=== PATIENT | female | born 1980 | race Caucasian/White ===

== ENCOUNTER 2018-02-24 13:20 | Emergency (ER) | payer SELFPAY ==
--- NOTE | 2018-02-24 13:23 | EDM.PDOC ---
ED HPI GENERAL MEDICAL PROBLEM - General Stated Complaint: BACK PAIN Time Seen by Provider: 02/24/18 13:22 Source of Information: Reports: Patient History Limitations: Reports: No Limitations - History of Present Illness INITIAL COMMENTS - FREE TEXT/NARRATIVE: HISTORY AND PHYSICAL: History of present illness: Review of systems: As per history of present illness and below otherwise all systems reviewed and negative. Past medical history: As per history of present illness and as reviewed below otherwise noncontributory. Surgical history: As per history of present illness and as reviewed below otherwise noncontributory. Social history: No reported history of drug or alcohol abuse. Family history: As per history of present illness and as reviewed below otherwise noncontributory. Physical exam: General: Well-developed and well-nourished 38-year-old female. Alert and oriented. Nontoxic appearing and in no acute distress. HEENT: Atraumatic, normocephalic, pupils equal and reactive bilaterally, negative for conjunctival pallor or scleral icterus, mucous membranes moist, throat clear, neck supple, nontender, trachea midline. No drooling or trismus noted. No meningeal signs Lungs: Clear to auscultation, breath sounds equal bilaterally, chest nontender. Heart: S1S2, regular rate and rhythm without overt murmur Abdomen: Soft, nondistended, nontender. Negative for masses or hepatosplenomegaly. Negative for costovertebral tenderness. Pelvis: Stable nontender. Genitourinary: Deferred. Rectal: Deferred. Skin: Intact, warm, dry. No lesions or rashes noted. Extremities: Atraumatic, negative for cords or calf pain. Neurovascular unremarkable. Neuro: Awake, alert, oriented. Cranial nerves II through XII unremarkable. Cerebellum unremarkable. Motor and sensory unremarkable throughout. Exam nonfocal. Notes: Diagnostics: Therapeutics: Prescription: Impression: Plan: 1. 2. 3. Follow-up with your primary caregiver in the next 1-2 days. Return to the ED as needed and as discussed. Definitive disposition and diagnosis as appropriate pending reevaluation and review of above. - Related Data Allergies Allergy/AdvReac Type Severity Reaction Status Date / Time azithromycin Allergy Difficulty Verified 05/09/16 16:37 Breathing Sulfa (Sulfonamide Allergy Difficulty Verified 05/09/16 16:37 Antibiotics) Breathing Home Meds: Home Meds methIMAzole [Methimazole] 5 mg PO DAILY 01/27/15 [History] Hydrocodone/Acetaminophen [Hydrocodon-Acetaminophen 5-325] 1 tab PO Q4H PRN [History] Propranolol [Inderal] 1 tab PO TID 03/26/15 [History] Baclofen 20 mg PO TID PRN 03/23/16 [History] Indomethacin 50 mg PO TID PRN 03/23/16 [History] Naproxen Sodium [Aleve] 220 mg PO ASDIRECTED PRN 03/23/16 [History] Pregabalin [Lyrica] 75 mg PO BID 03/23/16 [History] buPROPion [Wellbutrin XL] 150 mg PO DAILY 04/08/16 [History] Nitrofurantoin Monohyd/M-Cryst [IJD: Nitrofurantoin [place]-MCR] 100 mg PO BID #10 capsule 04/09/16 [Rx] Rivaroxaban [Xarelto] 15 mg PO BID #40 tablet 04/09/16 [Rx] Past Medical History - Past Health History Medical/Surgical History: Denies Medical/Surgical History HEENT History: Reports: Impaired Vision Cardiovascular History: Reports: Arrhythmia Respiratory History: Reports: None Gastrointestinal History: Reports: None 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: Dysfunctional Uterine Bleeding, Polycystic Ovaries Musculoskeletal History: Reports: Fibromyalgia Neurological History: Reports: Headaches, Chronic, Other (See Below) Other Neuro History: Graves Disease, Lupus, Fibromyalgia Psychiatric History: Reports: Anxiety, Depression Endocrine/Metabolic History: Reports: Hyperthyroidism Hematologic History: Reports: None Immunologic History: Reports: None Oncologic (Cancer) History: Reports: None - Infectious Disease History Infectious Disease History: Reports: Chicken Pox - Past Surgical History Female Surgical History: Reports: Hysterectomy, Other (See Below) Social & Family History - Family History Family Medical History: Noncontributory HEENT: Reports: Impaired Vision Cardiac: Reports: Hypertension OBGYN: Reports: Musculoskeletal: Reports: Arthritis Endocrine/Metabolic: Reports: Diabetes, type II - Caffeine Use Caffeine Use: Reports: Tea
[2018-02-24] MEDS ORDERED: Ketorolac 60 MG/2 ML SDV IM ONE (14:03)
[2018-02-24] MEDS ORDERED: methylPREDNISolone Sodium Succinate 125 MG/2 ML SDV IVPUSH ONE (14:03)
--- NOTE | 2018-02-24 14:05 | EDM.PDOC ---
ED HPI GENERAL MEDICAL PROBLEM - General Chief Complaint: Back Pain or Injury Stated Complaint: BACK PAIN Time Seen by Provider: 02/24/18 13:22 Source of Information: Reports: Patient History Limitations: Reports: No Limitations - History of Present Illness INITIAL COMMENTS - FREE TEXT/NARRATIVE: HISTORY AND PHYSICAL: History of present illness: 38-year-old female presenting with chief complaint of right lower back pain extending into the right lower leg with past medical history fibromyalgia. Patient states that last week she strained her back when working with her horse. States that since then she has had right lower back pain that extends into her right lower leg. She does state that she has had some numbness and tingling associated with this. She denies any overt trauma. She does see nor does he who treats her with pain medication including Castaner 7.5, tramadol, and Lyrica. Patient states that the main reason why she came in to make sure she had no other further injuries. As above patient denies any overt trauma. She denies any bowel or bladder incontinence. No decrease in strength. Exam right straight leg raise positive. No decrease in sensation or muscle strength. Range of motion somewhat limited secondary to pain. Review of systems: As per history of present illness and below otherwise all systems reviewed and negative. Past medical history: As per history of present illness and as reviewed below otherwise noncontributory. Surgical history: As per history of present illness and as reviewed below otherwise noncontributory. Social history: No reported history of drug or alcohol abuse. Family history: As per history of present illness and as reviewed below otherwise noncontributory. Physical exam: See above H&P HEENT: Atraumatic, normocephalic, pupils reactive, negative for conjunctival pallor or scleral icterus, mucous membranes moist, throat clear, neck supple, nontender, trachea midline. Lungs: Clear to auscultation, breath sounds equal bilaterally, chest nontender. Heart: S1S2, regular, negative for clicks, rubs, or JVD. Abdomen: Soft, nondistended, nontender. Negative for masses or hepatosplenomegaly. Negative for costovertebral tenderness. Pelvis: Stable nontender. Genitourinary: Deferred. Rectal: Deferred. Extremities: Atraumatic, negative for cords or calf pain. Neurovascular unremarkable. Neuro: Awake, alert, oriented. Cranial nerves II through XII unremarkable. Cerebellum unremarkable. Motor and sensory unremarkable throughout. Exam nonfocal. Diagnostics: [] Therapeutics: 60 mg IM Toradol 125 mg IM Solu-Medrol Impression: Lower back strain Lower back with radiculopathy to the right lower extremity Suspected disc herniation Plan: Patient had significant improvement after 60 mg of Toradol and 125 mg of IM Solu -Medrol. She was discharged in good condition with instructions to call Dr. Varma, her PCP, who manages her other chronic pain issues today. She was in complete understanding. I did suggest that if she continues to have pain she may need more radiological imaging to elucidate the true etiology. On exam she does appear to possibly have a lumbar disc herniation suspicious of L4-L5. She was also instructed to return to emergency department if she had any new or worsening symptoms. Definitive disposition and diagnosis as appropriate pending reevaluation and review of above. - Related Data Allergies Allergy/AdvReac Type Severity Reaction Status Date / Time azithromycin Allergy Difficulty Verified 05/09/16 16:37 Breathing Sulfa (Sulfonamide Allergy Difficulty Verified 05/09/16 16:37 Antibiotics) Breathing Home Meds: Home Meds methIMAzole [Methimazole] 5 mg PO DAILY 01/27/15 [History] Hydrocodone/Acetaminophen [Hydrocodon-Acetaminophen 5-325] 1 tab PO Q4H PRN [History] Propranolol [Inderal] 1 tab PO TID 03/26/15 [History] Baclofen 20 mg PO TID PRN 03/23/16 [History] Naproxen Sodium [Aleve] 220 mg PO ASDIRECTED PRN 03/23/16 [History] Pregabalin [Lyrica] 75 mg PO BID 03/23/16 [History] buPROPion [Wellbutrin XL] 150 mg PO DAILY 04/08/16 [History] Rivaroxaban [Xarelto] 15 mg PO BID #40 tablet 04/09/16 [Rx] Meloxicam [Mobic] 15 mg PO DAILY 02/24/18 [History] Past Medical History - Past Health History Medical/Surgical History: Denies Medical/Surgical History HEENT History: Reports: Impaired Vision Cardiovascular History: Reports: Arrhythmia Respiratory History: Reports: None Gastrointestinal History: Reports: None 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: Dysfunctional Uterine Bleeding, Polycystic Ovaries Musculoskeletal History: Reports: Fibromyalgia Neurological History: Reports: Headaches, Chronic, Other (See Below) Other Neuro History: Graves Disease, Lupus, Fibromyalgia Psychiatric History: Reports: Anxiety, Depression Endocrine/Metabolic History: Reports: Hyperthyroidism Hematologic History: Reports: None Immunologic History: Reports: None Oncologic (Cancer) History: Reports: None - Infectious Disease History Infectious Disease History: Reports: Chicken Pox - Past Surgical History Female Surgical History: Reports: Hysterectomy, Other (See Below) Social & Family History - Family History Family Medical History: Noncontributory HEENT: Reports: Impaired Vision Cardiac: Reports: Hypertension OBGYN: Reports: Musculoskeletal: Reports: Arthritis Endocrine/Metabolic: Reports: Diabetes, type II - Caffeine Use Caffeine Use: Reports: Tea ED ROS GENERAL - Review of Systems Review Of Systems: ROS reveals no pertinent complaints other than HPI. ED EXAM, GENERAL - Physical Exam Exam: See Below Course - Orders/Labs/Meds Meds: Medications Discontinued Medications Generic Name Dose Route Start Last Admin Trade Name Freq PRN Reason Stop Dose Admin Ketorolac Tromethamine 60 mg 02/24/18 14:03 02/24/18 14:30 Toradol IM 02/24/18 14:04 60 mg ONETIME ONE Administration Methylprednisolone Sodium Succinate 125 mg 02/24/18 14:03 02/24/18 14:32 Solu-Medrol IVPUSH 02/24/18 14:04 Not Given ONETIME ONE Methylprednisolone Sodium Succinate 125 mg 02/24/18 14:29 02/24/18 14:32 Solu-Medrol IM 02/24/18 14:30 125 mg ONETIME ONE Administration Departure - Departure Time of Disposition: 14:54 Disposition: Home, Self-Care 01 Condition: Good Clinical Impression: Lumbar back pain with radiculopathy affecting right lower extremity, Lumbar disc herniation - Discharge Information Referrals: PCP,None [Primary Care Provider] - Forms: ED Department Discharge Additional Instructions: My general discharge The following information is given to patients seen in the emergency department who are being discharged to home. This information is to outline your options for follow-up care. We provide all patients seen in our emergency department with a follow-up referral. The need for follow-up, as well as the timing and circumstances, are variable depending upon the specifics of your emergency department visit. If you don't have a primary care physician on staff, we will provide you with a referral. We always advise you to contact your personal physician following an emergency department visit to inform them of the circumstance of the visit and for follow-up with them and/or the need for any referrals to a consulting specialist. The emergency department will also refer you to a specialist when appropriate. This referral assures that you have the opportunity for follow-up care with a specialist. All of these measure are taken in an effort to provide you with optimal care, which includes your follow-up. Under all circumstances we always encourage you to contact your private physician who remains a resource for coordinating your care. When calling for follow-up care, please make the office aware that this follow-up is from your recent emergency room visit. If for any reason you are refused follow-up, please contact the [facility] Emergency Department at and asked to speak to the emergency department charge nurse. Please call and follow-up with your primary care physician as we discussed. Return to emergency department for any new or worsening symptoms as we discussed.
[2018-02-24] MEDS ORDERED: methylPREDNISolone Sodium Succinate 125 MG/2 ML SDV IM ONE (14:29)
[2018-02-24 20:28] VITALS: BP 124/58
== END 2018-02-24 15:11 | disposition home or self-care (01) ==
LOC: MW.ED 13:20
DX: S39.012A Strain of muscle, fascia and tendon of lower back, initial encounter (principal); M54.16 Radiculopathy, lumbar region; Z88.1 Allergy status to other antibiotic agents; Z88.2 Allergy status to sulfonamides; X50.9XXA Other and unspecified overexertion or strenuous movements or postures, initial encounter
CPT/HCPCS: 96372; 99282; J1885; J2930; 99283

== ENCOUNTER 2019-10-21 19:18 | Emergency (ER) | payer MEDICAID ==
[2019-10-21] MEDS ORDERED: Bacitracin Oint 1 GM U/D Packet TOP ONE (19:49)
[2019-10-21] MEDS ORDERED: Acetaminophen/HYDROcodone 325-5 MG Tab PO ONE (19:49)
[2019-10-21] MEDS ORDERED: Diphtheria,Pertussis(Acell),Tetanus Vaccine 0.5 ML Syringe IM ONE (19:49)
--- NOTE | 2019-10-21 19:56 | EDM.PDOC ---
ED HPI GENERAL MEDICAL PROBLEM - General Chief Complaint: General Stated Complaint: SHOULDER AND FACE INJURY Time Seen by Provider: 10/21/19 19:44 Source of Information: Reports: Patient History Limitations: Reports: No Limitations - History of Present Illness INITIAL COMMENTS - FREE TEXT/NARRATIVE: HISTORY AND PHYSICAL: History of present illness: Patient is a 39-year-old female who presents to the emergency room with complaints of pain after falling. She states she was on her horse when it bucked her off and she had landed on the right side. She has soft tissue swelling and abrasion to her right cheekbone which is painful to touch. She has left shoulder pain mainly in the trapezius area which she states is puzzling as she fell on her right side. She was ambulatory into the emergency room and able to move all extremities per self without difficulty or deficits. Patient denies any fever, chills, headache, change in vision, syncope or near syncope. Denies any chest pain, back pain, shortness of breath or cough. Denies any abdominal pain, nausea, vomiting, diarrhea, constipation or dysuria. Has not noted any blood in urine or stool. Patient has been eating and drinking appropriately. Review of systems: As per history of present illness and below otherwise all systems reviewed and negative. Past medical history: As per history of present illness and as reviewed below otherwise noncontributory. Surgical history: As per history of present illness and as reviewed below otherwise noncontributory. Social history: See social history for further information Family history: As per history of present illness and as reviewed below otherwise noncontributory. Physical exam: General: Well-developed and well-nourished 39-year-old female. Alert and oriented. Nontoxic-appearing and in no acute distress. HEENT: Soft tissue swelling and abrasion noted to right cheekbone and jehovah's witness with tenderness to palpation. No pain with ocular movement. She does have a loose tooth at #6 (no fracture), normocephalic, pupils equal and reactive bilaterally, negative for conjunctival pallor or scleral icterus, mucous membranes moist, TMs normal bilaterally, throat clear, neck supple, nontender, trachea midline. No drooling or trismus noted. No meningeal signs. No hot potato voice noted. Lungs: Clear to auscultation, breath sounds equal bilaterally, chest nontender. Heart: S1S2, regular rate and rhythm without overt murmur Abdomen: Soft, nondistended, nontender. Negative for masses or hepatosplenomegaly. Negative for costovertebral tenderness. Pelvis: Stable nontender. C-spine/Back: No pinpoint vertebral tenderness upon palpation. No crepitus, step -offs or obvious deformities. Patient is ambulatory into the emergency room without difficulty or deficit. Pain with palpation of the left trapezius muscle and into the shoulder girdle. She is able to rock back on heels and walk on toes. Denies any urinary or fecal incontinence. Denies any numbness, tingling or saddle paresthesia. Skin: Intact, warm, dry. No lesions or rashes noted. Extremities: Pain with palpation of left shoulder girdle and trapezius muscle. She is able to move all extremities per self without difficulty or deficits, negative for cords or calf pain. NO foot drop. Neurovascular unremarkable. Neuro: Awake, alert, oriented. Cranial nerves II through XII unremarkable. Cerebellum unremarkable. Motor and sensory unremarkable throughout. Exam nonfocal. Notes: After examining the patient she is agreeable to a head and maxillofacial CT along with x-ray of the left shoulder. She states nothing else is bothering her at this time and does not want any additional imaging. Wound care was provided for the abrasion on the face with bacitracin. Tetanus has been updated. CT shows no acute intracranial findings. There is some mild soft tissue stranding over the right cheek. Negative facial bones. There is scattered para sinus disease. X-ray shows no fracture, dislocation or left-sided pneumothorax. Sling was offered for left shoulder due to injury and pain with ROM- suspected muscular strain. Supportive care measures were reviewed and discussed. Voices understanding and is agreeable to plan of care. Denies any further questions or concerns at this time. Diagnostics: Head and maxillofacial CT, left shoulder x-ray Therapeutics: Wound care, Tdap, Bacitracin, Jumping Branch Prescription: Jumping Branch (#10), Sling Impression: Fall Facial contusion Left shoulder injury Plan: 1. The medication you received today does cause drowsiness, so do not drive for the remaining day 2. When resting please lay on a flat firm surface. Limit your immobility to prevent muscle stiffness. Get up to ambulate/move around/gentle stretching multiple times throughout the day. May alternate heat and ice to the painful areas 3. Tylenol and/or Ibuprofen as needed for pain. Gentle ice to the area as needed. Jumping Branch for moderate to severe pain, this medication may cause drowsiness a do not take it will driving her needing to be functioning outside of the house. 4. Please follow-up with your primary care provider as we discussed. Return to the ED as needed and as discussed. Definitive disposition and diagnosis as appropriate pending reevaluation and review of above. - Related Data Allergies Allergy/AdvReac Type Severity Reaction Status Date / Time azithromycin Allergy Difficulty Verified 10/21/19 19:45 Breathing Sulfa (Sulfonamide Allergy Difficulty Verified 10/21/19 19:45 Antibiotics) Breathing Home Meds: Home Meds methIMAzole [Methimazole] 5 mg PO DAILY 01/27/15 [History] Pregabalin [Lyrica] 75 mg PO BID 03/23/16 [History] buPROPion [Wellbutrin XL] 150 mg PO DAILY 04/08/16 [History] Propranolol [Inderal] 40 mg PO BID 10/21/19 [History] Past Medical History - Past Health History Medical/Surgical History: Denies Medical/Surgical History HEENT History: Reports: Impaired Vision Cardiovascular History: Reports: Arrhythmia Respiratory History: Reports: None Gastrointestinal History: Reports: None 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: Dysfunctional Uterine Bleeding, Polycystic Ovaries Musculoskeletal History: Reports: Fibromyalgia Neurological History: Reports: Headaches, Chronic, Other (See Below) Other Neuro History: Graves Disease, Lupus, Fibromyalgia Psychiatric History: Reports: Anxiety, Depression Endocrine/Metabolic History: Reports: Hyperthyroidism Hematologic History: Reports: None Immunologic History: Reports: None Oncologic (Cancer) History: Reports: None - Infectious Disease History Infectious Disease History: Reports: Chicken Pox - Past Surgical History Female Surgical History: Reports: Hysterectomy, Other (See Below) Social & Family History - Family History Family Medical History: Noncontributory HEENT: Reports: Impaired Vision Cardiac: Reports: Hypertension OBGYN: Reports: Musculoskeletal: Reports: Arthritis Endocrine/Metabolic: Reports: Diabetes, type II - Caffeine Use Caffeine Use: Reports: Tea ED ROS GENERAL - Review of Systems Review Of Systems: Comprehensive ROS is negative, except as noted in HPI. ED EXAM, GENERAL - Physical Exam Exam: See Below (See dictation) Course - Vital Signs Last Recorded V/S: Last Vital Signs Temp 97.3 F 10/21/19 19:28 Pulse 115 H 10/21/19 19:28 Resp 16 10/21/19 19:28 BP 121/88 10/21/19 19:28 Pulse Ox 96 10/21/19 19:28 - Orders/Labs/Meds Orders: Active Orders 24 hr Category Date Time Status Vaccines to be Administered [RC] PER UNIT ROUTINE Care 10/21/19 19:49 Active Max Facial Sinus wo Cont [CT] Stat Exams 10/21/19 19:49 Taken DME for Discharge [COMM] Stat Oth 10/21/19 21:33 Ordered Meds: Medications Discontinued Medications Generic Name Dose Route Start Last Admin Trade Name Juan PRN Reason Stop Dose Admin Hydrocodone Bitart/Acetaminophen 1 tab 10/21/19 19:49 10/21/19 20:17 Jumping Branch 325-5 Mg PO 10/21/19 19:50 1 tab ONETIME ONE Administration Bacitracin 1 dose 10/21/19 19:49 10/21/19 20:17 Bacitracin Oint 1 Gm TOP 10/21/19 19:50 1 dose ONETIME ONE Administration Diphtheria/Tetanus/Acell Pertussis 0.5 ml 10/21/19 19:49 10/21/19 20:17 Adacel IM 10/21/19 19:50 0.5 ml .ONCE ONE Administration Departure - Departure Time of Disposition: 21:11 Disposition: Home, Self-Care 01 Clinical Impression: Fall Qualifiers: Encounter type: initial encounter Qualified Code(s): W19.XXXA - Unspecified fall, initial encounter Contusion Qualifiers: Encounter type: initial encounter Contusion area: head Contusion of head detail : periocular area Laterality: right Qualified Code(s): S00.11XA - Contusion of right eyelid and periocular area, initial encounter Injury of left shoulder Qualifiers: Encounter type: initial encounter Qualified Code(s): S49.92XA - Unspecified injury of left shoulder and upper arm, initial encounter - Discharge Information Referrals: Rima Morejon DO [Primary Care Provider] - Forms: ED Department Discharge Additional Instructions: The following information is given to patients seen in the emergency department who are being discharged to home. This information is to outline your options for follow-up care. We provide all patients seen in our emergency department with a follow-up referral. The need for follow-up, as well as the timing and circumstances, are variable depending upon the specifics of your emergency department visit. If you don't have a primary care physician on staff, we will provide you with a referral. We always advise you to contact your personal physician following an emergency department visit to inform them of the circumstance of the visit and for follow-up with them and/or the need for any referrals to a consulting specialist. The emergency department will also refer you to a specialist when appropriate. This referral assures that you have the opportunity for follow-up care with a specialist. All of these measure are taken in an effort to provide you with optimal care, which includes your follow-up. Under all circumstances we always encourage you to contact your private physician who remains a resource for coordinating your care. When calling for follow-up care, please make the office aware that this follow-up is from your recent emergency room visit. If for any reason you are refused follow-up, please contact the [facility] Emergency Department at and asked to speak to the emergency department charge nurse. [facility] [address] [place] [address] [id number] [address] [id number] 1. The medication you received today does cause drowsiness, so do not drive for the remaining day 2. When resting please lay on a flat firm surface. Limit your immobility to prevent muscle stiffness. Get up to ambulate/move around/gentle stretching multiple times throughout the day. May alternate heat and ice to the painful areas 3. Tylenol and/or Ibuprofen as needed for pain. Gentle ice to the area as needed. Jumping Branch for moderate to severe pain, this medication may cause drowsiness a do not take it will driving her needing to be functioning outside of the house. 4. Please follow-up with your primary care provider as we discussed. Return to the ED as needed and as discussed. Sepsis Event Note - Focused Exam Vital Signs: Vital Signs Temp Pulse Resp BP Pulse Ox 10/21/19 19:28 97.3 F 115 H 16 121/88 96 Date Exam was Performed: 10/21/19 Time Exam was Performed: 21:34 - My Orders Last 24 Hours: My Active Orders 10/21/19 19:49 Vaccines to be Administered [RC] PER UNIT ROUTINE Max Facial Sinus wo Cont [CT] Stat 10/21/19 21:33 DME for Discharge [COMM] Stat - Assessment/Plan Last 24 Hours: My Active Orders 10/21/19 19:49 Vaccines to be Administered [RC] PER UNIT ROUTINE Max Facial Sinus wo Cont [CT] Stat 10/21/19 21:33 DME for Discharge [COMM] Stat
--- NOTE | 2019-10-21 20:54 | CR ---
INDICATION: Pt w/lt shoulder pain s/p getting thrown off horse today. INDICATION: Pain after injury. TECHNIQUE: Left shoulder, three views. COMPARISON: None FINDINGS: Bones: Alignment is normal. No fractures or bone lesions. Joint spaces: Unremarkable. Soft tissues: Unremarkable. IMPRESSION: 1. No fracture is identified. 2. No glenohumeral joint dislocation on the transscapular Y-view. 3. No displaced rib fracture or left-sided pneumothorax. Dictated by Kwame Ugalde MD @ 10/21/2019 8:53:52 PM Dictated by: Kwame Ugalde MD @ 10/21/2019 20:53:59 (Electronically Signed)
--- NOTE | 2019-10-21 21:27 | CT ---
INDICATION: Head pain after being thrown off of a horse today. Abrasions above right eye. COMPARISON: CT head 04/07/2016. No report is available for review. TECHNIQUE: CT of the head without IV contrast. Coronal and sagittal reconstructions are provided. FINDINGS: No intracranial hemorrhage, mass effect, or evidence of acute infarct. No midline shift. No abnormal extra-axial fluid collections. Normal caliber ventricular system. Orbits and extraocular muscles are symmetric. Paranasal sinuses and mastoid air cells are clear. No acute fracture. Partially visualized mild soft tissue stranding overlying the right cheek. Soft tissues are otherwise unremarkable. IMPRESSION: : 1. No acute intracranial findings. 2. Partially visualized mild soft tissue stranding overlying the right cheek. Please note that all CT scans at this facility use dose modulation, iterative reconstruction, and/or weight-based dosing when appropriate to reduce radiation dose to as low as reasonably achievable. Dictated by Madison Brown MD @ Oct 21 2019 9:19PM Signed by Dr. Madison Brown @ Oct 21 2019 9:25PM
--- NOTE | 2019-10-21 21:37 | CT ---
INDICATION: Pt w/head pain s/p getting thrown off of horse today. Pt had abrasions above rt eye. COMPARISON: CT head 04/07/2016. TECHNIQUE: CT of the facial bones without IV contrast. Coronal and sagittal reconstructions. FINDINGS: There is minimal mucosal thickening in the inferior aspect of the left maxillary sinus, as well as mucosal thickening and frothy secretions within right posterior ethmoid air cells. The paranasal sinuses are otherwise clear. The mastoid air cells and middle ear cavities are clear. The nasal septum is midline. The right sphenoid sinus ostia is occluded by mucosal thickening. The ostiomeatal complexes are otherwise patent bilaterally. The orbits are intact and there is no evidence of a fracture within the facial bones. There are no areas of bone destruction. The mandible appears intact and the temporomandibular joints are anatomically aligned. There are periapical lucencies about the left posterior most mandibular molar and all of the left maxillary molars. Visualized intracranial contents are unremarkable. Soft tissue stranding in the right cheek. IMPRESSION: 1. Negative facial bones. 2. Soft tissue stranding in the right cheek. 3. Scattered paranasal sinus disease. 4. Periapical lucencies about the left mandibular and maxillary molars. Please note that all CT scans at this facility use dose modulation, iterative reconstruction, and/or weight-based dosing when appropriate to reduce radiation dose to as low as reasonably achievable. Dictated by Madison Brown MD @ Oct 21 2019 9:25PM Signed by Dr. Madison Brown @ Oct 21 2019 9:36PM
[2019-10-22 00:29] VITALS: BP 131/76; PULSE 80
== END 2019-10-21 21:45 | disposition home or self-care (01) ==
LOC: MW.ED 19:18
DX: S00.11XA Contusion of right eyelid and periocular area, initial encounter (principal); S49.92XA Unspecified injury of left shoulder and upper arm, initial encounter; Z88.1 Allergy status to other antibiotic agents; Z88.2 Allergy status to sulfonamides; Z23 Encounter for immunization; Z79.899 Other long term (current) drug therapy; V80.010A Animal-rider injured by fall from or being thrown from horse in noncollision accident, initial encounter
CPT/HCPCS: 70450; 70486; 73030; 90471; 90715; 99284; A9270; 99283